=== PATIENT | female | born 1995 | race Caucasian/White ===

== ENCOUNTER 2017-07-10 11:52 | Emergency (ER) | payer BC ==
[2017-07-10 12:11] VITALS: RESP 18
--- NOTE | 2017-07-10 13:13 | EDPHY ---
H & P Time Seen by Provider: 07/10/17 12:56 HPI/ROS: Chief complaint. Frequent menstrual periods HPI. 22-year-old female presents with 3 menstrual periods in the last 2 and half weeks. She tells me that she has had irregular, heavy. Her whole life. She had an IUD placed 3 years ago which did seem to help regulate her periods. About 2 and half weeks ago she started AA and normal menstrual. Though it stopped abruptly after 3 days. She then had no vaginal bleeding for 3-4 days and then again started having vaginal bleeding for 3-4 days. It then stopped for 3-4 days and then yesterday began again. Each episode is similar in flow to a normal. Though may be slightly more red than usual. She has no real low abdominal pain but has some low back pain that began after snowboarding though there was no fall. Her back pain is worse with coughing and sneezing. She has no urinary symptoms. No fever. She was supposed to have a ultrasound after placement of the IUD 3 years ago but never did. It was placed by a color printer operator in [place] ROS Constitutional. no fever/chills, no weakness Eyes. no problems with vision ENT. no sore throat, no nasal drainage Cardiovascular. no chest pain Respiratory. no shortness of breath, no cough Abdominal. no abdominal pain, no nausea/vomiting, no diarrhea. Vaginal bleeding . no problems urinating MS. Low back pain Skin. no rash Lymph. no swollen glands Neuro. no headache, no dizziness, no difficulty walking or with speech Past Medical/Surgical History: Healthy Social History: Single, nonsmoker, no alcohol Smoking Status: Never smoked Physical Exam: General Appearance: Alert pleasant well-developed female mild distress vital signs are stable Eyes: Pupils equal and round no pallor or injection. ENT, Mouth: Mucous membranes are moist. Respiratory: There are no retractions, lungs are clear to auscultation. Cardiovascular: Regular rate and rhythm. Gastrointestinal: Abdomen is soft and nontender, no masses, bowel sounds normal. Neurological: Awake and alert, sensory and motor exams grossly normal. Skin: Warm and dry, no rashes. Musculoskeletal: Neck is supple nontender. Diffuse tenderness across the lumbar area Extremities symmetrical, full range of motion. Psychiatric: Patient is oriented X 3, there is no agitation. Constitutional: Initial Vital Signs Temperature (C) 36.9 C 07/10/17 12:00 Heart Rate 70 07/10/17 12:00 Respiratory Rate 18 07/10/17 12:00 Blood Pressure 133/80 H 07/10/17 12:00 O2 Sat (%) 97 07/10/17 12:00 O2 Delivery Mode Room Air Allergies/Adverse Reactions: latex Allergy (Intermediate, Verified 07/10/17 12:05) Hives Home Medications: Medication Instructions Recorded Iud 07/10/17 Medical Decision Making - Diagnostics Imaging Results: Imaging Impressions Pelvic/Renal Ultrasound 07/10/17 13:13 Impression: 1. Malpositioned intrauterine device with the side arms deployed in the lower uterine segment extending into the myometrium (and potentially to the serosal surface on the left). 2. Normal appearance of the ovaries with no torsion, dominant adnexal mass, or free fluid. Findings were discussed with ISELA MARTINEZ MD at 14:57, on 07/10/2017. . Procedures: IV normal saline with 1 L. Toradol IV Pelvic exam is performed by me after discussion with the patient. The IUD is malposition and she would like it removed. The strings are identified and the IUD is removed without difficulty. ED Course/Re-evaluation: Serial evaluations patient remained stable. The patient and I discussed imaging and lab results. We discussed treatment plan and recommendation for IUD removal. She expresses understanding and agreement Differential Diagnosis: I suspect that the IUD is irritating the cervical canal lower uterine segment as it is malposition. I considered anemia, , urinary tract infection as well - Data Points Laboratory Results: Laboratory Results 07/10/17 13:25 07/10/17 13:25 07/10/17 07/10/17 07/10/17 14:25 13:25 13:25 WBC RBC Hgb Hct MCV MCH MCHC RDW Plt Count MPV Neut % (Auto) Lymph % (Auto) [place] % (Auto) Eos % (Auto) Baso % (Auto) Nucleat RBC Rel Count Absolute Neuts (auto) Absolute Lymphs (auto) Absolute Monos (auto) Absolute Eos (auto) Absolute Basos (auto) Absolute Nucleated RBC Immature Gran % Immature Gran # Sodium 142 mEq/L mEq/L (135-145) Potassium 3.9 mEq/L mEq/L (3.5-5.2) Chloride 102 mEq/L mEq/L (97-110) Carbon Dioxide 24 mEq/l mEq/l (22-31) Anion Gap 16 mEq/L mEq/L (8-16) BUN 14 mg/dL mg/dL (7-23) Creatinine 0.7 mg/dL mg/dL (0.6-1.0) Estimated GFR > 60 Glucose 79 mg/dL mg/dL (70-100) Calcium 10.3 mg/dL mg/dL (8.5-10.4) Beta HCG, Qual NEGATIVE Urine Color YELLOW Urine Appearance HAZY Urine pH 5.0 (5.0-7.5) Ur Specific [place] 1.020 (1.002-1.030) Urine Protein NEGATIVE (NEGATIVE) Urine Ketones NEGATIVE (NEGATIVE) Urine Blood 2+ H (NEGATIVE) Urine Nitrate NEGATIVE (NEGATIVE) Urine Bilirubin NEGATIVE (NEGATIVE) Urine Urobilinogen NEGATIVE EU EU (0.2-1.0) Ur Leukocyte Esterase NEGATIVE (NEGATIVE) Urine RBC 1-3 /hpf /hpf (0-3) Urine WBC 1-3 /hpf /hpf (0-3) Ur Epithelial Cells 1+ /lpf /lpf (NONE-1+) Urine Mucus 2+ /lpf H /lpf (NONE-1+) Urine Glucose NEGATIVE (NEGATIVE) 07/10/17 13:25 WBC 7.58 10^3/uL 10^3/uL (3.80-9.50) RBC 4.71 10^6/uL 10^6/uL (4.18-5.33) Hgb 14.8 g/dL g/dL (12.6-16.3) Hct 43.2 % % (38.0-47.0) MCV 91.7 fL fL (81.5-99.8) MCH 31.4 pg pg (27.9-34.1) MCHC 34.3 g/dL g/dL (32.4-36.7) RDW 12.7 % % (11.5-15.2) Plt Count 346 10^3/uL 10^3/uL (150-400) MPV 10.1 fL fL (8.7-11.7) Neut % (Auto) 43.0 % % (39.3-74.2) Lymph % (Auto) 44.7 % % (15.0-45.0) [place] % (Auto) 9.2 % % (4.5-13.0) Eos % (Auto) 1.7 % % (0.6-7.6) Baso % (Auto) 0.5 % % (0.3-1.7) Nucleat RBC Rel Count 0.0 % % (0.0-0.2) Absolute Neuts (auto) 3.25 10^3/uL 10^3/uL (1.70-6.50) Absolute Lymphs (auto) 3.39 10^3/uL H 10^3/uL (1.00-3.00) Absolute Monos (auto) 0.70 10^3/uL 10^3/uL (0.30-0.80) Absolute Eos (auto) 0.13 10^3/uL 10^3/uL (0.03-0.40) Absolute Basos (auto) 0.04 10^3/uL 10^3/uL (0.02-0.10) Absolute Nucleated RBC 0.00 10^3/uL 10^3/uL (0-0.01) Immature Gran % 0.9 % % (0.0-1.1) Immature Gran # 0.07 10^3/uL 10^3/uL (0.00-0.10) Sodium Potassium Chloride Carbon Dioxide Anion Gap BUN Creatinine Estimated GFR Glucose Calcium Beta HCG, Qual Urine Color Urine Appearance Urine pH Ur Specific [place] Urine Protein Urine Ketones Urine Blood Urine Nitrate Urine Bilirubin Urine Urobilinogen Ur Leukocyte Esterase Urine RBC Urine WBC Ur Epithelial Cells Urine Mucus Urine Glucose Medications Given: Discontinued Medications Sodium Chloride (Ns) 1,000 mls @ 0 mls/hr IV EDNOW ONE; Wide Open PRN Reason: Protocol Stop: 07/10/17 13:26 Last Admin: 07/10/17 14:28 Dose: 1,000 mls Ketorolac Tromethamine (Toradol) 30 mg IVP EDNOW ONE Stop: 07/10/17 13:26 Last Admin: 07/10/17 13:36 Dose: 30 mg Departure - Departure Disposition: Home, Routine, Self-Care Clinical Impression: Vaginal bleeding Malpositioned IUD Qualifiers: Encounter type: initial encounter Qualified Code(s): T83.32XA - Displacement of intrauterine contraceptive device, initial encounter Condition: Good Instructions: Dysfunctional Uterine Bleeding (ED) Additional Instructions: Use alternative forms of contraception. Return for worsening symptoms. Follow up with gynecology for continued vaginal bleeding For your low back pain use ibuprofen 600 mg every 6 hr. Referrals: NONE *PRIMARY CARE P,. [Primary Care Provider] - As per Instructions Ashlyn Tavarez MD [Medical Doctor] - 2-3 days, if not improved
[2017-07-10] MEDS ORDERED: KETOROLAC 30 MG/1 ML SDV IVP ONE (13:25)
[2017-07-10] MEDS ORDERED: NS 1,000 ML IV ONE (13:25)
[2017-07-10] MEDS ORDERED: KETOROLAC 15 MG/1 ML SDV ONE (13:34)
[2017-07-10 13:36] LABS: PLATELET COUNT 346 10^3/uL (150-400)
[2017-07-10 15:49] VITALS: BP 102/66; PULSE 74; TEMP 98.1; O2SAT 98
== END 2017-07-10 16:13 | disposition home or self-care (01) ==
DX: T83.32XA Displacement of intrauterine contraceptive device, initial encounter (principal); E86.9 Volume depletion, unspecified; Z91.040 Latex allergy status; Y73.2 Prosthetic and other implants, materials and accessory gastroenterology and urology devices associated with adverse incidents
CPT/HCPCS: 96374; J1885